=== PATIENT | female | born 1940 | race Caucasian/White ===

== ENCOUNTER 2018-02-21 10:23 | Inpatient (IN) | payer OTHER ==
[~2018-02-21] VITALS: Ht 152.4 cm; Wt 56.0 kg
[~2018-02-21 10:23] MED LIST: AMOXIL500 MG PO; ASPIR-LOW81 M1 PO; ATENOLOL50 MG PO; BIAXIN FILMTAB500 MG PO; CLONIDINE0.1 M1 PO; HYDROCHLOROTH12.5 MG PO; METFORMIN500 M1 PO; PRILOSEC20 MG PO; PRINIVIL40 MG PO; TEN50 PO
[2018-02-21 11:06] LABS: BASOPHIL % 0.5 % (0-2); PLATELET COUNT 223 x10^3mcL (130-400); RED CELL DISTRIBUTION WIDTH 14.2 % (11.5-14.5)
[2018-02-21 11:49] LABS: CALCIUM 8.7 mg/dL (8.5-10.1); CARBON DIOXIDE 28.1 mmol/L (21-32); CHLORIDE SERUM 103 mmol/L (98-107); CREATININE SERUM 1.3 mg/dL (0.6-1.0); GLUCOSE SERUM 245 mg/dL (74-106); SODIUM SERUM 135 mmol/L (136-145)
[2018-02-21 11:53] LABS: ALBUMIN 4.1 g/dL (3.4-5.0); ALKALINE PHOSPHATASE 129 U/L (46-116); ALT/SGPT 16 U/L (14-59); AST/SGOT 19 U/L (15-37); BILIRUBIN TOTAL 0.6 mg/dL (0.20-1.00); LIPASE 313 IU/L (73-393); MAGNESIUM 1.4 mg/dL (1.8-2.4)
[2018-02-21 11:55] LABS: AMYLASE 120 U/L (25-115); CHOLESTEROL 218 mg/dL (<200); HDL CHOLESTEROL 76 mg/dL (40-60); TOTAL PROTEIN, SERUM 8.7 g/dL (6.4-8.2)
[2018-02-21 12:12] LABS: UA SPECIFIC GRAVITY >=1.030 (1.005-1.035); microscopic required? YES; urine erythrocyte TRACE (NEGATIVE)
[2018-02-21 12:47] LABS: AMPHETAMINE QUAL UR NONE DETECTED (See below)
[2018-02-21 15:12] LABS: PHOSPHOROUS 3.7 mg/dL (2.5-4.9)
[2018-02-21 15:40] VITALS: BP 150/58
[2018-02-21 15:46] VITALS: Ht 152.4 cm; Wt 56.0 kg
[2018-02-21 17:26] VITALS: BP 149/56
[2018-02-21 21:21] VITALS: BP 130/58
[2018-02-22 05:33] LABS: BASOPHIL % 0.7 % (0-2); PLATELET COUNT 188 x10^3mcL (130-400); RED CELL DISTRIBUTION WIDTH 13.8 % (11.5-14.5)
[2018-02-22 05:34] VITALS: BP 133/53
[2018-02-22 05:40] LABS: CALCIUM 7.9 mg/dL (8.5-10.1); CARBON DIOXIDE 24.9 mmol/L (21-32); CHLORIDE SERUM 107 mmol/L (98-107); CREATININE SERUM 1.3 mg/dL (0.6-1.0); GLUCOSE SERUM 144 mg/dL (74-106); MAGNESIUM 1.3 mg/dL (1.8-2.4); PHOSPHOROUS 3.8 mg/dL (2.5-4.9); SODIUM SERUM 141 mmol/L (136-145)
[2018-02-22 10:18] VITALS: BP 155/47
[2018-02-22 13:40] VITALS: BP 140/59
[2018-02-22 16:49] VITALS: BP 139/61
[2018-02-22 20:18] VITALS: BP 163/57
[2018-02-23] VITALS (7 sets, daily range): BP systolic 135–193; BP diastolic 60–71
[2018-02-23 08:30] LABS: BASOPHIL % 0.4 % (0-2); PLATELET COUNT 235 x10^3mcL (130-400); RED CELL DISTRIBUTION WIDTH 13.9 % (11.5-14.5)
[2018-02-23 08:31] LABS: CALCIUM 8.6 mg/dL (8.5-10.1); CARBON DIOXIDE 26.5 mmol/L (21-32); CHLORIDE SERUM 105 mmol/L (98-107); CREATININE SERUM 1.2 mg/dL (0.6-1.0); GLUCOSE SERUM 120 mg/dL (74-106); MAGNESIUM 2.1 mg/dL (1.8-2.4); POTASSIUM SERUM 3.9 mmol/L (3.5-5.1); SODIUM SERUM 139 mmol/L (136-145)
[2018-02-23 22:16] LABS: CHOLESTEROL/HDL RATIO 2.8
[2018-02-24] VITALS (8 sets, daily range): BP systolic 145–240; BP diastolic 60–92
[2018-02-25 05:39] VITALS: BP 150/70
[2018-02-25 06:55] LABS: BASOPHIL % 0.4 % (0-2); PLATELET COUNT 214 x10^3mcL (130-400); RED CELL DISTRIBUTION WIDTH 13.8 % (11.5-14.5)
[2018-02-25 07:17] LABS: CALCIUM 9.7 mg/dL (8.5-10.1); CARBON DIOXIDE 24.5 mmol/L (21-32); CHLORIDE SERUM 103 mmol/L (98-107); CREATININE SERUM 1.3 mg/dL (0.6-1.0); GLUCOSE SERUM 154 mg/dL (74-106); MAGNESIUM 1.4 mg/dL (1.8-2.4); PHOSPHOROUS 3.6 mg/dL (2.5-4.9); POTASSIUM SERUM 4.6 mmol/L (3.5-5.1); SODIUM SERUM 139 mmol/L (136-145)
[2018-02-25 08:25] VITALS: BP 177/65
[2018-02-25 13:22] VITALS: BP 131/60
[2018-02-25 17:37] VITALS: BP 186/54
[2018-02-25 18:16] VITALS: BP 159/54
[2018-02-25 20:44] VITALS: BP 167/57
[2018-02-26 05:24] VITALS: BP 130/70
[2018-02-26 06:00] LABS: BASOPHIL % 0.4 % (0-2); PLATELET COUNT 258 x10^3mcL (130-400); RED CELL DISTRIBUTION WIDTH 14.2 % (11.5-14.5)
[2018-02-26 06:42] LABS: CALCIUM 9.9 mg/dL (8.5-10.1); CARBON DIOXIDE 25.2 mmol/L (21-32); CHLORIDE SERUM 102 mmol/L (98-107); CREATININE SERUM 1.5 mg/dL (0.6-1.0); GLUCOSE SERUM 122 mg/dL (74-106); MAGNESIUM 2.1 mg/dL (1.8-2.4); POTASSIUM SERUM 4.3 mmol/L (3.5-5.1); SODIUM SERUM 139 mmol/L (136-145)
[2018-02-26 08:46] VITALS: BP 130/56
[2018-02-26 13:11] VITALS: BP 175/65
[2018-02-26] MEDS ORDERED: CLONIDINE HCL0.2 MG PO (14:47)
[2018-02-26] MEDS ORDERED: APR50 PO (14:48)
[2018-02-26] MEDS ORDERED: NOR5 PO (14:48)
[2018-02-26] MEDS ORDERED: BACTRIM DS1 TAB PO (14:57)
[2018-02-26 15:00] VITALS: BP 133/52
[2018-02-26 16:47] VITALS: BP 137/48
[2018-02-26 17:13] LABS: microscopic required? NO
[2018-02-26 17:20] LABS: urine erythrocyte NEGATIVE (NEGATIVE)
== END 2018-02-26 18:13 | disposition home health service (06) | DRG 77 ==
LOC: ED 10:23 → DU 13:01
PROVIDERS: Emergency Medicine; Family Medicine; General Practice; Internal Medicine; Internal Medicine Pulmonary Disease
DX: I67.4 Hypertensive encephalopathy (principal); N17.0 Acute kidney failure with tubular necrosis; E87.1 Hypo-osmolality and hyponatremia; N39.0 Urinary tract infection, site not specified; G90.8 Other disorders of autonomic nervous system; I16.0 Hypertensive urgency; S00.03XA Contusion of scalp, initial encounter; W18.30XA Fall on same level, unspecified, initial encounter; Y93.01 Activity, walking, marching and hiking; E11.22 Type 2 diabetes mellitus with diabetic chronic kidney disease; I12.9 Hypertensive chronic kidney disease with stage 1 through stage 4 chronic kidney disease, or unspecified chronic kidney disease; M46.92 Unspecified inflammatory spondylopathy, cervical region; E78.00 Pure hypercholesterolemia, unspecified; M47.892 Other spondylosis, cervical region; N18.3 Chronic kidney disease, stage 3 (moderate); E11.65 Type 2 diabetes mellitus with hyperglycemia; R31.9 Hematuria, unspecified; E86.0 Dehydration; K21.9 Gastro-esophageal reflux disease without esophagitis; E83.51 Hypocalcemia; E83.42 Hypomagnesemia; D64.9 Anemia, unspecified; Y92.89 Other specified places as the place of occurrence of the external cause; Y99.8 Other external cause status; Z79.84 Long term (current) use of oral hypoglycemic drugs; Z79.899 Other long term (current) drug therapy; Z83.3 Family history of diabetes mellitus; Z87.891 Personal history of nicotine dependence; Z79.82 Long term (current) use of aspirin; Z23 Encounter for immunization
CPT/HCPCS: 83880; 90715; 97110-GP; 97116-GP; 97535-GP; J1815; J3475; J3490; J7030; J8597; Q0092

== ENCOUNTER 2018-03-09 01:59 | Inpatient (IN) | payer OTHER ==
[~2018-03-09] VITALS: Ht 154.9 cm; Wt 54.0 kg
[~2018-03-09 01:59] MED LIST changes: +APR50 PO; +BACTRIM DS1 TAB PO; +CLONIDINE HCL0.2 MG PO; +NOR5 PO
[2018-03-09 03:44] LABS: PLATELET COUNT 268 x10^3mcL (130-400); RED CELL DISTRIBUTION WIDTH 13.7 % (11.5-14.5)
[2018-03-09 03:45] LABS: BASOPHIL % 2.1 % (0-2)
[2018-03-09 04:13] LABS: ALKALINE PHOSPHATASE 87 U/L (46-116); AST/SGOT 24 U/L (15-37); BILIRUBIN TOTAL 0.31 mg/dL (0.20-1.00); CALCIUM 9.8 mg/dL (8.5-10.1); CARBON DIOXIDE 19.5 mmol/L (21-32); CHLORIDE SERUM 96 mmol/L (98-107); CHOLESTEROL 163 mg/dL (<200); CREATININE SERUM 1.9 mg/dL (0.6-1.0); PHOSPHOROUS 2.7 mg/dL (2.5-4.9); POTASSIUM SERUM 5.4 mmol/L (3.5-5.1); SODIUM SERUM 129 mmol/L (136-145)
[2018-03-09 04:28] LABS: HDL CHOLESTEROL 70 mg/dL (40-60); TOTAL PROTEIN, SERUM 8.6 g/dL (6.4-8.2)
[2018-03-09 04:32] LABS: GLUCOSE SERUM 35 mg/dL (74-106)
[2018-03-09 04:34] LABS: UA SPECIFIC GRAVITY <=1.005 (1.005-1.035); microscopic required? YES; urine erythrocyte TRACE (NEGATIVE)
[2018-03-09 04:37] LABS: ALT/SGPT 17 U/L (14-59)
[2018-03-09] MEDS ORDERED: LIPI10 PO (06:30)
[2018-03-09 07:02] LABS: MAGNESIUM 1.6 mg/dL (1.8-2.4); PHOSPHOROUS 2.9 mg/dL (2.5-4.9)
[2018-03-09 09:34] VITALS: BP 180/59
[2018-03-09 13:37] VITALS: BP 167/69
[2018-03-09 16:41] VITALS: BP 113/47; BP 123/64
[2018-03-09 20:53] VITALS: BP 163/59
[2018-03-09 21:52] VITALS: Ht 154.9 cm; Wt 54.0 kg
[2018-03-10] VITALS (8 sets, daily range): BP systolic 108–220; BP diastolic 52–91
[2018-03-10 06:29] LABS: BASOPHIL % 0.8 % (0-2); PLATELET COUNT 221 x10^3mcL (130-400); RED CELL DISTRIBUTION WIDTH 13.8 % (11.5-14.5)
[2018-03-10 06:47] LABS: CALCIUM 8.6 mg/dL (8.5-10.1); CARBON DIOXIDE 20.5 mmol/L (21-32); CHLORIDE SERUM 113 mmol/L (98-107); CREATININE SERUM 1.4 mg/dL (0.6-1.0); POTASSIUM SERUM 5.2 mmol/L (3.5-5.1); SODIUM SERUM 142 mmol/L (136-145)
[2018-03-10 07:14] LABS: GLUCOSE SERUM 50 mg/dL (74-106)
[2018-03-11] VITALS (9 sets, daily range): BP systolic 135–220; BP diastolic 55–77
[2018-03-11 13:37] LABS: CALCIUM 8.7 mg/dL (8.5-10.1); CARBON DIOXIDE 22.1 mmol/L (21-32); CHLORIDE SERUM 104 mmol/L (98-107); CREATININE SERUM 1.5 mg/dL (0.6-1.0); GLUCOSE SERUM 316 mg/dL (74-106); POTASSIUM SERUM 5.2 mmol/L (3.5-5.1); SODIUM SERUM 134 mmol/L (136-145)
== END 2018-03-11 19:47 | disposition home or self-care (01) | DRG 637 ==
LOC: ED 01:59 → DU 04:40
PROVIDERS: Emergency Medicine; Internal Medicine; Internal Medicine Pulmonary Disease
DX: E11.649 Type 2 diabetes mellitus with hypoglycemia without coma (principal); G93.41 Metabolic encephalopathy; E87.1 Hypo-osmolality and hyponatremia; N18.4 Chronic kidney disease, stage 4 (severe); E87.5 Hyperkalemia; E83.42 Hypomagnesemia; E11.22 Type 2 diabetes mellitus with diabetic chronic kidney disease; I12.9 Hypertensive chronic kidney disease with stage 1 through stage 4 chronic kidney disease, or unspecified chronic kidney disease; R00.1 Bradycardia, unspecified
CPT/HCPCS: J1650; J3475; J3490; J7030; J7042; J7060; Q0092